=== PATIENT | female | born 1950 | race Caucasian/White ===

== ENCOUNTER 2021-10-03 09:34 | Observation (INO) ==
[2021-10-03] MEDS ORDERED: Benzonatate 100 MG CAPSULE PO ONE (11:00)
[2021-10-03 11:40] LABS: Basophils % 0.3 %; Eosinophils % 0.6 %; Hematocrit 38.8 % (35.3-44.9); Hemoglobin 12.5 g/dL (11.5-15.4); Immature Granulocytes % 0.6 % (0-4); Lymphocytes # 1.3 K/mcL (0.6-4.6); Lymphocytes % 19.4 %; Mean Corpuscular HGB Conc 32.2 g/dL (31.6-35.5); Mean Corpuscular Hemoglobin 31.1 pg (28.0-33.3); Mean Corpuscular Volume 96.5 fL (83.0-100.0); Mean Platelet Volume 10.7 fL (9.4-12.4); Monocytes # 1.6 K/mcL (0.0-1.3); Monocytes % 24.5 %; Neutrophils # 3.7 K/mcL (1.6-8.9); Platelet Count 174 K/mcL (140-400); Red Blood Count 4.02 M/mcL (3.82-4.97); Red Cell Distribution Width 13.2 % (11.5-14.5); Segmented Neutrophils % 54.6 %; White Blood Count 6.7 K/mcL (4.3-11.1)
[2021-10-03 11:48] LABS: INR 1.2; Prothrombin Time 13.1 Seconds (9.4-12.1)
[2021-10-03 11:51] LABS: Activated Partial Thrombo Time 30.5 Seconds (26.0-36.0)
[2021-10-03 11:56] LABS: Platelet Estimate Normal (Normal)
[2021-10-03 12:05] LABS: BUN/Creatinine Ratio 18 (6-26); Blood Urea Nitrogen 14 mg/dL (8-23); Calcium 8.3 mg/dL (8.6-10.3); Carbon Dioxide 24 mEq/L (23-29); Chloride 106 mEq/L (98-107); Glucose 110 mg/dL (70-105); Osmolality,Calculated 287 (280-300); Potassium 3.9 mEq/L (3.5-5.1); Sodium 138 mEq/L (136-145); eGFR For African Americans > 60 (> 60); eGFR For Non-African Americans > 60 (> 60)
[2021-10-03 12:09] LABS: Troponin I 0.07 ng/mL (< 0.04)
[2021-10-03 12:09] LABS: Influenza A PCR Negative (Negative); Influenza B PCR Negative (Negative); Resp. Syncytial Virus PCR Negative (Negative)
[2021-10-03 12:10] LABS: SARS-CoV-2 by PCR (In House) Negative (Negative)
[2021-10-03] MEDS ORDERED: Aspirin 81 MG TAB.CHEW PO ONE (12:12)
[2021-10-03] MEDS ORDERED: Acetaminophen 325 MG TABLET PO PRN (12:58)
[2021-10-03] MEDS ORDERED: Ondansetron ODT 4 MG TAB.RAPDIS SL PRN (12:58)
[2021-10-03] MEDS ORDERED: *HR* Heparin 5,000 UNIT/ML VIAL IVP ONE (13:02)
[2021-10-03] MEDS ORDERED: *HR* Heparin 5,000 UNIT/ML VIAL IVP PRN ×2 (13:02)
[2021-10-03] MEDS ORDERED: Heparin 25,000UNIT/250ML 1/2NS 25,000 UNIT/250 ML IV.SOLN IVC SCH (13:15)
[2021-10-03] MEDS: carvediloL 6.25 MG TABLET PO SCH (17:07)
[2021-10-03] MEDS ORDERED: Melatonin 3 MG TABLET PO SCH (21:00)
[2021-10-04 06:10] LABS: Hematocrit 35.5 % (35.3-44.9); Hemoglobin 11.8 g/dL (11.5-15.4); Mean Corpuscular HGB Conc 33.2 g/dL (31.6-35.5); Mean Corpuscular Hemoglobin 31.6 pg (28.0-33.3); Mean Corpuscular Volume 94.9 fL (83.0-100.0); Mean Platelet Volume 10.8 fL (9.4-12.4); Platelet Count 165 K/mcL (140-400); Red Blood Count 3.74 M/mcL (3.82-4.97); Red Cell Distribution Width 13.2 % (11.5-14.5); White Blood Count 5.7 K/mcL (4.3-11.1)
[2021-10-04 06:29] LABS: BUN/Creatinine Ratio 23 (6-26); Blood Urea Nitrogen 14 mg/dL (8-23); Carbon Dioxide 22 mEq/L (23-29); Chloride 114 mEq/L (98-107); Glucose 104 mg/dL (70-105); Osmolality,Calculated 277 (280-300); Potassium 3.6 mEq/L (3.5-5.1); Sodium 133 mEq/L (136-145); eGFR For African Americans > 60 (> 60); eGFR For Non-African Americans > 60 (> 60)
[2021-10-04 08:13] VITALS: BP 132/68; PULSE 82; TEMP 98.3; O2SAT 92
[2021-10-04] MEDS: carvediloL 6.25 MG TABLET PO SCH (08:38)
[2021-10-04] MEDS ORDERED: Aspirin 81 MG TAB.CHEW PO SCH (09:00)
== END 2021-10-04 10:30 | disposition home or self-care (01) ==
LOC: EMEROOARM 09:34 → 3BNU 09:34 → SUATTDRO 14:10 → 3BNU 15:18
PROVIDERS: ADMIT Family Medicine; ATTEND Internal Medicine

== ENCOUNTER 2022-07-04 12:22 | Inpatient (IN) ==
[2022-07-04 13:27] LABS: Hematocrit 42.3 % (35.3-44.9); Hemoglobin 13.5 g/dL (11.5-15.4); Mean Corpuscular HGB Conc 31.9 g/dL (31.6-35.5); Mean Corpuscular Hemoglobin 30.3 pg (28.0-33.3); Mean Corpuscular Volume 95.1 fL (83.0-100.0); Mean Platelet Volume 12.2 fL (9.4-12.4); Platelet Count 166 K/mcL (140-400); Red Blood Count 4.45 M/mcL (3.82-4.97); Red Cell Distribution Width 14.2 % (11.5-14.5); White Blood Count 4.1 K/mcL (4.3-11.1)
[2022-07-04 13:46] LABS: Albumin 3.8 g/dL (3.5-5.7); Albumin/Globulin Ratio 1.8 (1.1-2.2); Bilirubin,Direct 0.1 mg/dL (0.0-0.2); Bilirubin,Indirect 0.8 mg/dL (0.0-1.0); Bilirubin,Total 0.9 mg/dL (0.3-1.0); Calcium 8.9 mg/dL (8.6-10.3); Globulin 2.1 g/dL (2.4-3.5); Magnesium 1.5 mg/dL (1.6-2.6); Potassium 3.6 mEq/L (3.5-5.1); Total Protein 5.9 g/dL (6.4-8.9); Troponin I 0.07 ng/mL (< 0.04)
[2022-07-04] MEDS ORDERED: Iopamidol - 370 500 ML MLS IVP ONE (13:53)
[2022-07-04 13:57] LABS: Influenza A PCR Negative (Negative); Influenza B PCR Negative (Negative); Resp. Syncytial Virus PCR Negative (Negative)
[2022-07-04 14:04] LABS: SARS-CoV-2 by PCR (In House) Negative (Negative)
[2022-07-04 14:34] LABS: Lymphocytes # 1.6 K/mcL (0.6-4.6); Monocytes # 0.7 K/mcL (0.0-1.3); Neutrophils # 1.8 K/mcL (1.6-8.9)
[2022-07-04 14:36] LABS: Reactive Lymphocytes Present (Not Present)
[2022-07-04 14:37] LABS: Large Platelets Present (Not Present); Platelet Estimate Normal (Normal)
[2022-07-04 17:00] LABS: Bilirubin,Urine Negative (Negative); Blood,Urine Negative (Negative); Clarity,Urine Clear (Clear); Color,Urine Colorless (Yellow); Glucose,Urine (UA) Normal (Normal); Ketones,Urine 10 mg/dL (Negative); Leukocyte Esterase,Urine Negative (Negative); Mucus,Urine Few per lpf (None-Few); Nitrite,Urine Negative (Negative); Protein,Urine 30 mg/dL (Neg-Trace); Specific Gravity,Urine > 1.030 (1.010-1.025); Squamous Epithelial Cell,Urine Few per hpf (None-Few)
[2022-07-04] MEDS ORDERED: Naloxone 0.4 MG/ML INJ IVP PRN (17:22)
[2022-07-04] MEDS ORDERED: Melatonin 3 MG TABLET PO PRN (17:22)
[2022-07-04] MEDS ORDERED: Ondansetron 4 MG/2 ML VIAL IVP PRN (17:22)
[2022-07-04] MEDS ORDERED: Ibuprofen 400 MG TABLET PO PRN ×2 (17:27→17:29)
[2022-07-04] MEDS ORDERED: Ipratropium Neb 0.5 MG NEBULIZER IH PRN (17:27)
[2022-07-04] MEDS: MethylPREDNISolone 40 MG/ML VIAL IVP SCH (17:39)
[2022-07-04] MEDS: *HR* Ticagrelor 90 MG TABLET PO SCH (21:17)
[2022-07-04] MEDS: Ipratropium/Albuterol Neb 3 ML IH SCH (22:09)
[2022-07-05 01:12] LABS: Hemoglobin 12.1 g/dL (11.5-15.4); Mean Corpuscular Volume 93.4 fL (83.0-100.0); Red Cell Distribution Width 14.1 % (11.5-14.5)
[2022-07-05 01:14] LABS: Immature Granulocytes % 0.5 % (0-4); Immature Platelets 7.3 % (1.1-6.1); Lymphocytes # 0.6 K/mcL (0.6-4.6); Lymphocytes % 30.5 %; Mean Corpuscular HGB Conc 32.7 g/dL (31.6-35.5); Mean Corpuscular Hemoglobin 30.6 pg (28.0-33.3); Mean Platelet Volume 11.8 fL (9.4-12.4); Monocytes # 0.2 K/mcL (0.0-1.3); Monocytes % 9.1 %; Neutrophils # 1.1 K/mcL (1.6-8.9); Platelet Count 130 K/mcL (140-400); Red Blood Count 3.96 M/mcL (3.82-4.97); Segmented Neutrophils % 59.9 %; White Blood Count 1.9 K/mcL (4.3-11.1)
[2022-07-05 01:20] LABS: INR 1.3; Prothrombin Time 14.1 Seconds (9.4-12.1)
[2022-07-05 01:30] LABS: Platelet Estimate Normal (Normal)
[2022-07-05 01:33] LABS: BUN/Creatinine Ratio 23 (6-26); Blood Urea Nitrogen 13 mg/dL (8-23); Calcium 8.5 mg/dL (8.6-10.3); Carbon Dioxide 25 mEq/L (23-29); Chloride 106 mEq/L (98-107); Glucose 136 mg/dL (70-105); Osmolality,Calculated 288 (280-300); Potassium 4.2 mEq/L (3.5-5.1); Sodium 138 mEq/L (136-145)
[2022-07-05] MEDS: Ipratropium/Albuterol Neb 3 ML IH SCH ×4 (03:34→22:41)
[2022-07-05] MEDS: MethylPREDNISolone 40 MG/ML VIAL IVP SCH ×2 (05:36→17:14)
[2022-07-05] MEDS: Aspirin Enteric Coated 81 MG Tablet PO SCH (09:43)
[2022-07-05] MEDS: *HR* Ticagrelor 90 MG TABLET PO SCH ×2 (09:44→20:32)
[2022-07-05] MEDS ORDERED: tiZANidine 4 MG TABLET PO SCH (21:00)
[2022-07-06] MEDS: Ipratropium/Albuterol Neb 3 ML IH SCH ×2 (03:50→10:49)
[2022-07-06] MEDS: MethylPREDNISolone 40 MG/ML VIAL IVP SCH (05:24)
[2022-07-06] MEDS: Aspirin Enteric Coated 81 MG Tablet PO SCH (08:44)
[2022-07-06] MEDS ORDERED: atenoloL 50 MG TABLET PO SCH (09:00)
[2022-07-06] MEDS ORDERED: lisinopriL 20 MG TABLET PO SCH (09:00)
[2022-07-06] MEDS ORDERED: Budesonide/Formoterol 160/4.5 1 PUFF INH IH SCH (10:00)
[2022-07-06 11:12] VITALS: BP 140/73; PULSE 76; TEMP 98.1; O2SAT 98
[2022-07-06] MEDS ORDERED: TIZANIDINE HCL 2 MG PO SCH (21:00)
[2022-07-06] MEDS ORDERED: Mirtazapine 15 MG TABLET PO SCH (21:00)
[2022-07-06] MEDS ORDERED: Gabapentin 300 MG CAPSULE PO SCH (21:00)
== END 2022-07-06 13:38 | disposition home or self-care (01) | DRG 189 ==
LOC: EMEROOARM 12:22 → 3BNU 12:22 → SUATTDRO 16:51 → 3BNU 18:10
PROVIDERS: ADMIT Internal Medicine; ATTEND Internal Medicine